=== PATIENT | female | born 1960 ===

== ENCOUNTER → 2022-06-14 | Outpatient (CLI) | payer MEDICAID | LOC: COL.RAD 13:48 | DX: R06.00 Dyspnea, unspecified (principal); R07.9 Chest pain, unspecified; R79.1 Abnormal coagulation profile; Z86.711 Personal history of pulmonary embolism | CPT/HCPCS: Q9967 ==

== ENCOUNTER → 2022-06-14 | Outpatient (CLI) | payer MEDICAID | LOC: ZCOL.LAB 11:34 | DX: R07.9 Chest pain, unspecified (principal); R06.02 Shortness of breath ==

== ENCOUNTER 2023-11-20 11:15 | Outpatient (RCR) | payer MEDICAID | END 2023-11-24 | disposition home or self-care (01) | LOC: MKS.ESL.PT | DX: M25.561 Pain in right knee (principal); M25.562 Pain in left knee ==

== ENCOUNTER 2023-12-04 11:15 | Outpatient (RCR) | payer MEDICAID | END 2023-12-25 | disposition home or self-care (01) | LOC: MKS.ESL.PT | DX: M25.561 Pain in right knee (principal); M25.562 Pain in left knee ==